=== PATIENT | female | born 1975 | race Caucasian/White ===

== ENCOUNTER 2017-04-05 07:49 | Inpatient (IN) | payer BC ==
[2017-04-05] MEDS ORDERED: SODIUM CHLORIDE 0.9% 1,000 ML IV ONE (08:17)
[2017-04-05] MEDS ORDERED: IPRATROPIUM-ALBUTEROL 3 ML NEB INHALATION STA ×2 (08:23→09:15)
--- NOTE | 2017-04-05 08:23 | ED ---
URI HPI <Bruce Apodaca - Last Filed: 04/05/17 09:54> - General Source: patient, RN notes reviewed Mode of arrival: ambulatory Limitations: no limitations <Misbah Ward - Last Filed: 04/05/17 10:02> - General Chief Complaint: Upper Respiratory Infection Stated Complaint: pneumonia Time Seen by Provider: 04/05/17 08:01 - History of Present Illness Initial Comments: This a 42-year-old female presents emergency Department with chief complaint of cough congestion, shortness of breath fatigue. Patient states symptoms started primarily on progressively getting worse. She states every time she tries to eat or drink she coughs so much that she vomits. Patient states that she has no respiratory issues no traumatic which she states that she takes 2 medications for. Patient has had a prior hysterectomy. Patient states that she is a nonsmoker. adds that the patient house is under current renovation and that they have large amount of raccoons in the attic and there was dust particles flying around. Patient states that her daughter was sick though her daughters improved at this time. Patient denies sore throat, ear pain, nasal congestion. She states that she's had a high fever at home 102.7. Patient states she feels so fatigued and her heart has been racing. Patient states that homeless as she heard some rattling or wheezing. She states she does feel that she has a hard time catching her breath. She has tried multiple [id number] cough and cold medications with no relief. Patient states she has no abdominal pain with nausea vomiting she states is only related to her coughing. (Misbah Ward) - Related Data Home Medications Medication Instructions Recorded Confirmed No Known Home Medications [No 04/05/17 04/05/17 Known Home Medications] Allergies Allergy/AdvReac Type Severity Reaction Status Date / Time No Known Allergies Allergy Verified 04/05/17 08:47 Review of Systems ROS Other: All systems not noted in ROS Statement are negative. <Bruce Apodaca - Last Filed: 04/05/17 09:54> ROS Other: All systems not noted in ROS Statement are negative. <Misbah Ward - Last Filed: 04/05/17 10:02> ROS Statement: Those systems with pertinent positive or pertinent negative responses have been documented in the HPI. Past Medical History Past Medical History: No Reported History History of Any Multi-Drug Resistant Organisms: None Reported Past Surgical History: Hysterectomy Past Psychological History: No Psychological Hx Reported Smoking Status: Never smoker Past Alcohol Use History: Occasional Past Drug Use History: None Reported <Misbah Ward - Last Filed: 04/05/17 10:02> General Exam Limitations: no limitations General appearance: alert, in no apparent distress Head exam: Present: atraumatic, normocephalic, normal inspection Eye exam: Present: normal appearance, PERRL, EOMI. Absent: scleral icterus, conjunctival injection, periorbital swelling ENT exam: Present: normal exam, normal oropharynx, mucous membranes moist, TM's normal bilaterally, normal external ear exam Neck exam: Present: normal inspection, full ROM. Absent: tenderness, meningismus, lymphadenopathy Respiratory exam: Present: wheezes, decreased breath sounds. Absent: normal lung sounds bilaterally, respiratory distress, rales, rhonchi, stridor Cardiovascular Exam: Present: normal rhythm, tachycardia, normal heart sounds. Absent: systolic murmur, diastolic murmur, rubs, gallop, clicks GI/Abdominal exam: Present: soft, normal bowel sounds. Absent: distended, tenderness, guarding, rebound, rigid Neurological exam: Present: alert, oriented X3, CN II-XII intact Skin exam: Present: warm, dry, intact, normal color. Absent: rash <Misbah Ward - Last Filed: 04/05/17 10:02> Course <Bruce Apodaca - Last Filed: 04/05/17 09:54> <Misbah Ward - Last Filed: 04/05/17 10:02> Vital Signs 04/05/17 04/05/17 04/05/17 07:52 08:32 09:13 Temperature 98.8 F 98.6 F Pulse Rate 126 H 100 108 H Respiratory 16 18 Rate Blood Pressure 116/71 119/77 O2 Sat by Pulse 95 95 Oximetry 04/05/17 04/05/17 04/05/17 09:19 09:20 09:32 Temperature Pulse Rate 114 H 114 H 128 H Respiratory Rate Blood Pressure O2 Sat by Pulse Oximetry - Reevaluation(s) Reevaluation #1: 04/05/17 09:54 I did personally do a [id number] evaluation the patient and did discuss the findings with her and her significant other. Patient does demonstrate diminished breath sounds especially in the right lower lobe with wheezing initially. She did get multiple treatments and did feel somewhat better but her saturation still dropped shortly after being taken off oxygen. I did discuss the case with Dr. Kelley the patient will be admitted with consultation by S> Cedrick Donnelly (Bruce Apodaca) Medical Decision Making - Lab Data Result diagrams: 04/05/17 08:15 04/05/17 08:15 <Bruce Apodaca - Last Filed: 04/05/17 09:54> - Lab Data Result diagrams: 04/05/17 08:15 04/05/17 08:15 <Misbah Ward - Last Filed: 04/05/17 10:02> - Lab Data Lab Results 04/05/17 04/05/17 04/05/17 Range/Units 08:15 08:15 08:15 WBC 10.0 (3.8-10.6) k/uL RBC 4.38 (3.80-5.40) m/uL Hgb 13.5 (11.4-16.0) gm/dL Hct 40.0 (34.0-46.0) % MCV 91.2 (80.0-100.0) fL MCH 30.7 (25.0-35.0) pg MCHC 33.7 (31.0-37.0) g/dL RDW 13.3 (11.5-15.5) % Plt Count 278 (150-450) k/uL Neutrophils % 83 % Lymphocytes % 8 % Monocytes % 5 % Eosinophils % 1 % Basophils % 0 % Neutrophils # 8.2 H (1.3-7.7) k/uL Lymphocytes # 0.8 L (1.0-4.8) k/uL Monocytes # 0.5 (0-1.0) k/uL Eosinophils # 0.1 (0-0.7) k/uL Basophils # 0.0 (0-0.2) k/uL PT (9.0-12.0) sec INR (<1.2) APTT (22.0-30.0) sec Sodium 137 (137-145) mmol/L Potassium 3.8 (3.5-5.1) mmol/L Chloride 102 (98-107) mmol/L Carbon Dioxide 24 (22-30) mmol/L Anion Gap 11 mmol/L BUN 7 (7-17) mg/dL Creatinine 0.63 (0.52-1.04) mg/dL Est GFR (MDRD) Af Amer >60 (>60 ml/min/1.73 sqM) Est GFR (MDRD) Non-Af >60 (>60 ml/min/1.73 sqM) Glucose 105 H (74-99) mg/dL Plasma Lactic Acid Will 1.1 (0.7-2.0) mmol/L Calcium 8.3 L (8.4-10.2) mg/dL Total Bilirubin 0.5 (0.2-1.3) mg/dL AST 32 (14-36) U/L ALT 35 (9-52) U/L Alkaline Phosphatase 68 (38-126) U/L Total Protein 6.8 (6.3-8.2) g/dL Albumin 3.7 (3.5-5.0) g/dL Lipase 167 (23-300) U/L Urine Color Urine Appearance (Clear) Urine pH (5.0-8.0) Ur Specific [place] (1.001-1.035) Urine Protein (Negative) Urine Glucose (UA) (Negative) Urine Ketones (Negative) Urine Blood (Negative) Urine Nitrite (Negative) Urine Bilirubin (Negative) Urine Urobilinogen (<2.0) mg/dL Ur Leukocyte Esterase (Negative) Urine RBC (0-5) /hpf Urine WBC (0-5) /hpf Ur Squamous Epith Cells (0-4) /hpf Urine Bacteria (None) /hpf Urine Mucus (None) /hpf 04/05/17 04/05/17 Range/Units 08:15 08:15 WBC (3.8-10.6) k/uL RBC (3.80-5.40) m/uL Hgb (11.4-16.0) gm/dL Hct (34.0-46.0) % MCV (80.0-100.0) fL MCH (25.0-35.0) pg MCHC (31.0-37.0) g/dL RDW (11.5-15.5) % Plt Count (150-450) k/uL Neutrophils % % Lymphocytes % % Monocytes % % Eosinophils % % Basophils % % Neutrophils # (1.3-7.7) k/uL Lymphocytes # (1.0-4.8) k/uL Monocytes # (0-1.0) k/uL Eosinophils # (0-0.7) k/uL Basophils # (0-0.2) k/uL PT 10.3 (9.0-12.0) sec INR 1.0 (<1.2) APTT 25.4 (22.0-30.0) sec Sodium (137-145) mmol/L Potassium (3.5-5.1) mmol/L Chloride (98-107) mmol/L Carbon Dioxide (22-30) mmol/L Anion Gap mmol/L BUN (7-17) mg/dL Creatinine (0.52-1.04) mg/dL Est GFR (MDRD) Af Amer (>60 ml/min/1.73 sqM) Est GFR (MDRD) Non-Af (>60 ml/min/1.73 sqM) Glucose (74-99) mg/dL Plasma Lactic Acid Will (0.7-2.0) mmol/L Calcium (8.4-10.2) mg/dL Total Bilirubin (0.2-1.3) mg/dL AST (14-36) U/L ALT (9-52) U/L Alkaline Phosphatase (38-126) U/L Total Protein (6.3-8.2) g/dL Albumin (3.5-5.0) g/dL Lipase (23-300) U/L Urine Color Yellow Urine Appearance Cloudy H (Clear) Urine pH 6.0 (5.0-8.0) Ur Specific [place] 1.026 (1.001-1.035) Urine Protein 1+ H (Negative) Urine Glucose (UA) Negative (Negative) Urine Ketones 1+ H (Negative) Urine Blood Trace H (Negative) Urine Nitrite Negative (Negative) Urine Bilirubin Negative (Negative) Urine Urobilinogen <2.0 (<2.0) mg/dL Ur Leukocyte Esterase Large H (Negative) Urine RBC 3 (0-5) /hpf Urine WBC >182 H (0-5) /hpf Ur Squamous Epith Cells 11 H (0-4) /hpf Urine Bacteria Rare H (None) /hpf Urine Mucus Rare H (None) /hpf 04/05/17 09:13 EKG performed at 8:44 normal sinus rhythm with a rate of 100 RI interval 172 QRS duration 90 QT/QTC 354/456 (Misbah Ward) Disposition <Bruce Apodaca - Last Filed: 04/05/17 09:54> Time of Disposition: 10:02 <Misbah Ward - Last Filed: 04/05/17 10:02> Clinical Impression: Pneumonia, Hypoxia, UTI (urinary tract infection) Disposition: ADMITTED IP TO THIS HOSP Condition: Fair Referrals: Karlo Mariano MD [Primary Care Provider] - 1-2 days
[2017-04-05 08:52] LABS: Basophils % (A) 0 %; CH 30.3; CHCM 33.4; Eosinophils # (A) 0.1 k/uL (0-0.7); Eosinophils % (A) 1 %; HDW 2.48; HGB 13.5 gm/dL (11.4-16.0); Luc # (Auto) 0.27; Luc % (Auto) 3; Lymphocytes # (A) 0.8 k/uL (1.0-4.8); Lymphocytes % (A) 8 %; MCH 30.7 pg (25.0-35.0); MCHC 33.7 g/dL (31.0-37.0); MCV 91.2 fL (80.0-100.0); Mean Platelet Volume 7.5; Monocytes # (A) 0.5 k/uL (0-1.0); Monocytes % (A) 5 %; Neutrophils # (A) 8.2 k/uL (1.3-7.7); Neutrophils % (A) 83 %; RBC 4.38 m/uL (3.80-5.40); RDW 13.3 % (11.5-15.5); WBC (Perox) 9.27
[2017-04-05 08:55] LABS: Appearance,Urine Cloudy (Clear); Bacteria,Urine Rare /hpf; Bilirubin,Urine Negative (Negative); Glucose,Urine (UA) Negative (Negative); Ketones,Urine 1+ (Negative); Leukocyte Esterase,Urine Large (Negative); Mucus,Urine Rare /hpf; Nitrite,Urine Negative (Negative); Partial Thromboplastin Time 25.4 sec (22.0-30.0); Particle Count 9489; Protein,Urine 1+ (Negative); Prothrombin Time 10.3 sec (9.0-12.0); RBC,Urine 3 /hpf (0-5); Specific Gravity,Urine 1.026 (1.001-1.035); Squamous Epithelial Cell,Urine 11 /hpf (0-4); UA Billing (MACRO vs. MICRO) MICRO; Urobilinogen,Urine <2.0 mg/dL (<2.0); WBC,Urine >182 /hpf (0-5)
[2017-04-05 08:56] LABS: ALT 35 U/L (9-52); AST 32 U/L (14-36); Alkaline Phosphatase 68 U/L (38-126); Anion Gap 11 mmol/L; Blood Urea Nitrogen 7 mg/dL (7-17); Calcium 8.3 mg/dL (8.4-10.2); Carbon Dioxide 24 mmol/L (22-30); Chloride 102 mmol/L (98-107); Glucose 105 mg/dL (74-99); Non-African American GFR(MDRD) >60 (>60 ml/min/1.73 sqM); Potassium 3.8 mmol/L (3.5-5.1); Sodium 137 mmol/L (137-145); Total Bilirubin 0.5 mg/dL (0.2-1.3); Total Protein 6.8 g/dL (6.3-8.2)
--- NOTE | 2017-04-05 09:07 | XR ---
EXAMINATION TYPE: XR chest 2V DATE OF EXAM: 04/05/2017 COMPARISON: NONE HISTORY: cough, congestion, fever. TECHNIQUE: Frontal and lateral views of the chest are obtained. FINDINGS: Mild increased density right lung base may reflect developing infiltrate. Correlate clinically. No evidence for pneumothorax. No pleural effusion. The cardiac silhouette size is within normal limits. The osseous structures are grossly intact. IMPRESSION: 1. Mild increased density right lung base may reflect developing infiltrate. Correlate clinically.
[2017-04-05] MEDS ORDERED: PNEUMONIA PROTOCOL UTILIZED 1 EACH MISC PO PRN (10:02)
[2017-04-05] MEDS ORDERED: methylPREDNISolone SOD SUCCI 125 MG/2 ML VIAL IV STA (10:04)
[2017-04-05] MEDS ORDERED: AZITHROMYCIN 500 MG in SODIUM CHLORIDE 0.9% 250 ML IVPB STA (10:07)
[2017-04-05] MEDS: IPRATROPIUM-ALBUTEROL 3 ML NEB INHALATION PRN ×3 (11:45→20:01)
--- NOTE | 2017-04-05 14:16 | P.HPIM ---
History of Present Illness H&P Date: 04/05/17 Chief Complaint: Shortness of breath and cough This Is a 42-year-old pleasant female patient of Dr. Mariano. She is healthy with no significant medical problems except for shortness 5 please admitted through the emergency room secondary to dyspnea worsening over the past 3 days. Patient has had cough of approximately 5 days duration accompanied by fever, mucus mainly dry tenacious, daughter also has similar symptoms, however they had been renovating their attic for the past 4 years. They live in a mobile home, and was renovating one room at that time, he also mentioned that they have a large amount of raccoons in the attic and dust particles flying around. Patient has temperature of 102.7, has dyspnea and exertion fatigue palpitations , and wheezing and rattling. No medications were prescribed from the clinic, she tried multiple [id number] medications for cough without any relief. Patient denies any hemoptysis no abdominal pain no nausea no vomiting no diarrhea. In the emergency room x-rays revealed mild increased density right lung base may reflect developing infiltrate he had 3 nebulized [id number] treatments of albuterol presenting with hypoxemia and wheezing she is tachycardic, with temperature, double proceed of 10, INR 1.0, no d-dimer obtained Review of Systems Constitutional: Reports as per HPI, Reports chills, Reports fever, Reports lethargy, Denies anorexia, Denies chronic headaches, Denies chronic pain, Denies daytime sleepiness, Denies fatigue, Denies malaise, Denies night sweats, Denies poor appetite, Denies sweats, Denies weakness, Denies weight gain, Denies weight loss Ears, nose, mouth and throat: Reports as per HPI, Denies ant. neck pain, Denies bleeding gums, Denies dental pain, Denies dysphagia, Denies epistaxis, Denies headache, Denies hoarseness, Denies mouth pain, Denies nasal congestion, Denies nasal discharge, Denies neck fullness/pressure, Denies neck lump, Denies nose pain, Denies odynophagia, Denies post-nasal drip, Denies sinus pain, Denies sinus pressure, Denies swelling in mouth, Denies swelling in throat, Denies sore throat, Denies vertigo, Denies voice changes Cardiovascular: Reports as per HPI, Reports decreased exercise tolerance, Reports dyspnea on exertion, Denies chest pain, Denies claudication, Denies edema, Denies high blood pressure, Denies irregular heart beat, Denies leg edema , Denies lightheadedness, Denies orthopnea, Denies palpitations, Denies paroxysmal nocturnal dyspnea, Denies phlebitis, Denies rapid heart beat, Denies shortness of breath, Denies syncope Respiratory: Reports as per HPI, Reports pain on inspiration, Denies congestion , Denies cough, Denies cough with sputum, Denies dyspnea, Denies excessive sputum, Denies hemoptysis, Denies home oxygen, Denies pain, Denies pleurisy, Denies respiratory infections, Denies sleep apnea, Denies snoring, Denies wheezing Gastrointestinal: Reports as per HPI, Denies abdominal pain, Denies belching, Denies bloating, Denies BRBPR, Denies change in bowel habits, Denies coffee ground emesis, Denies constipation, Denies diarrhea, Denies dyspepsia, Denies early satiety, Denies excessive gas, Denies heartburn, Denies hematemesis, Denies hematochezia, Denies indigestion, Denies jaundice, Denies lactose intolerance, Denies loss of appetite, Denies melena, Denies nausea, Denies vomiting Genitourinary: Reports as per HPI, Denies abnormal vaginal bleeding, Denies decreased libido, Denies difficulty conceiving, Denies difficulty voiding, Denies dysmenorrhea, Denies dyspareunia, Denies dysuria, Denies flank pain, Denies genital sores, Denies hematuria, Denies hot flashes, Denies incomplete emptying, Denies kidney stones, Denies menorrhagia, Denies mixed incontinence, Denies nocturia, Denies pelvic pain, Denies post void dribbling, Denies , Denies prolapse symptoms, Denies stress incontinence, Denies urge incontinence , Denies urgency, Denies urinary frequency, Denies vaginal discharge, Denies vaginal dryness, Denies vaginal itching, Denies vaginal odor Musculoskeletal: Reports as per HPI Integumentary: Reports as per HPI, Denies acne, Denies boils, Denies brittle nails, Denies change in hair/nails, Denies color changes, Denies darkening of skin, Denies depigmentation, Denies dryness, Denies foot/leg ulcers, Denies growths, Denies hirsutism, Denies lesions, Denies onychomycosis, Denies pruritus , Denies rash, Denies sores, Denies striae, Denies unusual bruising, Denies wounds Neurological: Reports as per HPI, Denies aphasia, Denies ataxia, Denies balance difficulties, Denies burning pain, Denies change in mentation, Denies change in smell/taste, Denies change in speech, Denies confusion, Denies convulsions, Denies double vision, Denies gait dysfunction, Denies head injury, Denies headaches, Denies hearing difficulties, Denies lack of coordination, Denies loss of vision, Denies memory loss, Denies migraines, Denies motor disturbance, Denies numbness, Denies paralysis, Denies paresthesias, Denies seizures, Denies sensory deficit, Denies spasticity, Denies syncope, Denies tic, Denies tingling , Denies transient paralysis, Denies tremors, Denies vertigo, Denies weakness, Denies visual changes Psychiatric: Reports as per HPI, Reports change in libido, Denies anhedonia, Denies anxiety, Denies anxiety attacks, Denies change in appetite, Denies change in sleep habits, Denies confusion, Denies depression, Denies difficulty concentrating, Denies disorientation, Denies hallucinations, Denies hopelessness , Denies hypersomnia, Denies insomnia, Denies irritability, Denies memory loss, Denies mood swings, Denies paranoia, Denies sadness/tearfulness, Denies sleep disturbances, Denies suicidal ideation Endocrine: Reports as per HPI Hematologic/Lymphatic: Denies as per HPI, Denies easy bleeding, Denies easy bruising, Denies lymphadenopathy, Denies lymphedema, Denies thrombophilia Allergic/Immunologic: Reports as per HPI, Denies allergic rhinitis, Denies anaphylaxis, Denies angioedema, Denies gluten intolerance, Denies persistent infections, Denies seasonal allergies, Denies urticaria, Denies wheezing Past Medical History Past Medical History: No Reported History History of Any Multi-Drug Resistant Organisms: None Reported Past Surgical History: Hysterectomy (Partial) Past Psychological History: No Psychological Hx Reported Smoking Status: Former smoker (Quit April 2016) Past Alcohol Use History: Occasional Past Drug Use History: None Reported (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, mobile home arm was in 1967 and currently being remodeled ) - Past Family History Father Family Medical History: Coronary Artery Disease (CAD) (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, 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 60), Diabetes Mellitus Mother Family Medical History: No Reported History Brother(s) History Unknown: Yes (Bipolar) Sister(s) Family Medical History: No Reported History Daughter(s) Family Medical History: No Reported History Medications and Allergies Home Medications Medication Instructions Recorded Confirmed Type No Known Home Medications [No 04/05/17 04/05/17 History Known Home Medications] Allergies Allergy/AdvReac Type Severity Reaction Status Date / Time No Known Allergies Allergy Verified 04/05/17 08:47 Physical Exam Vitals: Vital Signs Temp Pulse Resp BP Pulse Ox 04/05/17 12:30 99.0 F 118 H 18 116/65 95 04/05/17 11:53 126 H 04/05/17 11:47 112 H 04/05/17 10:32 99.2 F 128 H 18 119/71 94 L 04/05/17 10:02 99 04/05/17 09:32 128 H 04/05/17 09:20 114 H 04/05/17 09:19 114 H 04/05/17 09:13 108 H 04/05/17 08:32 98.6 F 100 18 119/77 95 04/05/17 07:52 98.8 F 126 H 16 116/71 95 Intake and Output 04/04/17 04/05/17 04/05/17 22:59 06:59 14:59 Intake Total 60 Balance 60 Intake: Oral 60 Other: # Voids 2 Weight 90.718 kg Patient Weight 04/06/17 06:59 Weight 90.718 kg - Constitutional General appearance: cooperative, mild distress, no acute distress - EENT Eyes: anicteric sclerae, EOMI, PERRLA, dentition normal, normal appearance ENT: hearing grossly normal, NA/AT, normal oropharynx - Neck Neck: normal ROM - Respiratory Respiratory: bilateral: diminished, rales, wheezing, negative: CTA, dullness, rhonchi - Cardiovascular Rhythm: regular Heart sounds: normal: S1, S2 Abnormal Heart Sounds: no systolic murmur, no diastolic murmur, no rub, no S3 Gallop, no S4 Gallop, no click, no other - Gastrointestinal General gastrointestinal: normal bowel sounds - Integumentary Integumentary: normal, normal turgor - Neurologic Neurologic: CNII-XII intact - Musculoskeletal Musculoskeletal: gait normal, strength equal bilaterally - Psychiatric Psychiatric: A&O x's 3, appropriate affect, intact judgment & insight Results CBC & Chem 7: 04/05/17 08:15 04/05/17 08:15 Labs: Abnormal Lab Results - Last 24 Hours (Table) 04/05/17 04/05/17 04/05/17 Range/Units 08:15 08: 08:15 Neutrophils # 8.2 H (1.3-7.7) k/uL Lymphocytes # 0.8 L (1.0-4.8) k/uL Glucose 105 H (74-99) mg/dL Calcium 8.3 L (8.4-10.2) mg/dL Urine Appearance Cloudy H (Clear) Urine Protein 1+ H (Negative) Urine Ketones 1+ H (Negative) Urine Blood Trace H (Negative) Ur Leukocyte Esterase Large H (Negative) Urine WBC >182 H (0-5) /hpf Ur Squamous Epith Cells 11 H (0-4) /hpf Urine Bacteria Rare H (None) /hpf Urine Mucus Rare H (None) /hpf Laboratory Results WBC 10.0 k/uL (3.8-10.6) 04/05/17 08:15 RBC 4.38 m/uL (3.80-5.40) 04/05/17 08:15 Hgb 13.5 gm/dL (11.4-16.0) 04/05/17 08:15 Hct 40.0 % (34.0-46.0) 04/05/17 08:15 MCV 91.2 fL (80.0-100.0) 04/05/17 08:15 MCH 30.7 pg (25.0-35.0) 04/05/17 08:15 MCHC 33.7 g/dL (31.0-37.0) 04/05/17 08:15 RDW 13.3 % (11.5-15.5) 04/05/17 08:15 Plt Count 278 k/uL (150-450) 04/05/17 08:15 Neutrophils % 83 % 04/05/17 08:15 Lymphocytes % 8 % 04/05/17 08:15 Monocytes % 5 % 04/05/17 08:15 Eosinophils % 1 % 04/05/17 08:15 Basophils % 0 % 04/05/17 08:15 Neutrophils # 8.2 k/uL (1.3-7.7) H 04/05/17 08:15 Lymphocytes # 0.8 k/uL (1.0-4.8) L 04/05/17 08:15 Monocytes # 0.5 k/uL (0-1.0) 04/05/17 08:15 Eosinophils # 0.1 k/uL (0-0.7) 04/05/17 08:15 Basophils # 0.0 k/uL (0-0.2) 04/05/17 08:15 PT 10.3 sec (9.0-12.0) 04/05/17 08:15 INR 1.0 (<1.2) 04/05/17 08:15 APTT 25.4 sec (22.0-30.0) 04/05/17 08:15 Sodium 137 mmol/L (137-145) 04/05/17 08:15 Potassium 3.8 mmol/L (3.5-5.1) 04/05/17 08:15 Chloride 102 mmol/L (98-107) 04/05/17 08:15 Carbon Dioxide 24 mmol/L (22-30) 04/05/17 08:15 Anion Gap 11 mmol/L 04/05/17 08:15 BUN 7 mg/dL (7-17) 04/05/17 08:15 Creatinine 0.63 mg/dL (0.52-1.04) 04/05/17 08:15 Est GFR (MDRD) Af Amer >60 (>60 ml/min/1.73 sqM) 04/05/17 08:15 Est GFR (MDRD) Non-Af >60 (>60 ml/min/1.73 sqM) 04/05/17 08:15 Glucose 105 mg/dL (74-99) H 04/05/17 08:15 Plasma Lactic Acid Will 1.1 mmol/L (0.7-2.0) 04/05/17 08:15 Calcium 8.3 mg/dL (8.4-10.2) L 04/05/17 08:15 Total Bilirubin 0.5 mg/dL (0.2-1.3) 04/05/17 08:15 AST 32 U/L (14-36) 04/05/17 08:15 ALT 35 U/L (9-52) 04/05/17 08:15 Alkaline Phosphatase 68 U/L (38-126) 04/05/17 08:15 Total Protein 6.8 g/dL (6.3-8.2) 04/05/17 08:15 Albumin 3.7 g/dL (3.5-5.0) 04/05/17 08:15 Lipase 167 U/L (23-300) 04/05/17 08:15 Urine Color Yellow 04/05/17 08:15 Urine Appearance Cloudy (Clear) H 04/05/17 08:15 Urine pH 6.0 (5.0-8.0) 04/05/17 08:15 Ur Specific [place] 1.026 (1.001-1.035) 04/05/17 08:15 Urine Protein 1+ (Negative) H 04/05/17 08:15 Urine Glucose (UA) Negative (Negative) 04/05/17 08:15 Urine Ketones 1+ (Negative) H 04/05/17 08:15 Urine Blood Trace (Negative) H 04/05/17 08:15 Urine Nitrite Negative (Negative) 04/05/17 08:15 Urine Bilirubin Negative (Negative) 04/05/17 08:15 Urine Urobilinogen <2.0 mg/dL (<2.0) 04/05/17 08:15 Ur Leukocyte Esterase Large (Negative) H 04/05/17 08:15 Urine RBC 3 /hpf (0-5) 04/05/17 08:15 Urine WBC >182 /hpf (0-5) H 04/05/17 08:15 Ur Squamous Epith Cells 11 /hpf (0-4) H 04/05/17 08:15 Urine Bacteria Rare /hpf (None) H 04/05/17 08:15 Urine Mucus Rare /hpf (None) H 04/05/17 08:15 Thrombosis Risk Factor Assmnt - DVT/VTE Prophylaxis DVT/VTE Prophylaxis: Mechanical Prophylaxis ordered, Low risk, early ambulation encouraged - Choose All That Apply Each Factor Represents 1 point: Age 41-60 years Other Risk Factors: No Thrombosis Risk Factor Assessment Total Risk Factor Score: 1 Thrombosis Risk Factor Assessment Level: Low Risk Assessment and Plan Plan: 1. Acute respiratory distress related to right-sided pneumonia, with exposure to environmental aeroallergens, bronchospasm on presentation suspicious of reactive airway disease. Patient would be treated with IV steroids, IV Rocephin and Zithromax, sputum cultures as well as mycoplasma titer will be obtained and Legionella titers, patient would also have hypersensitivity pneumonitis panel to be obtained IgE levels to be obtained an alpha-1 antitrypsin to be obtained Dr. Donnelly on consult pulmonary 2. Pyuria noted on routine urinalysis, urine cultures would be also be done to evaluate pyuria 3. Arthritis without any auto immune pathology. Patient might need to be investigated further with an Vanna 4. Previous tobacco exposure quit in April 2016 5. Aeroallergen exposure constantly with the current home being renovated for the past 4 years, hypersensitivity pneumonitis and she can ALLERGY panel is requested
[2017-04-05 15:25] LABS: Hemoglobin A1C 5.5 % (4.2-6.1)
[2017-04-05] MEDS: methylPREDNISolone SOD SUCCI 125 MG/2 ML VIAL IV SCH ×2 (15:47→23:49)
[2017-04-05] MEDS: INSULIN LISPRO (humaLOG) 300 UNIT/3 ML VIAL SQ SCH ×2 (17:37→22:28)
[2017-04-05 17:43] LABS: Glucose,Whole Blood 205 mg/dL (75-99)
[2017-04-05] MEDS: BUDESONIDE 0.5 MG/2 ML NEBU INHALATION SCH (20:01)
[2017-04-05 20:55] LABS: Glucose,Whole Blood 263 mg/dL (75-99)
[2017-04-05] MEDS: HEPARIN SODIUM,PORCINE 5,000 UNIT/ML 1 ML VIAL SQ SCH (22:28)
[2017-04-05] MEDS: FAMOTIDINE 20 MG TAB PO SCH (22:28)
--- NOTE | 2017-04-05 22:30 | CT ---
EXAMINATION TYPE: CT chest wo con DATE OF EXAM: 04/05/2017 COMPARISON: NONE HISTORY: Cough and congestion CT DLP: 756 mGycm. Automated Exposure Control for Dose Reduction was Utilized. TECHNIQUE: CT scan of the thorax is performed without IV contrast. FINDINGS: LUNGS: In the right lung base there is developing consolidative opacity laterally and posteriorly, co nsistent with developing bronchopneumonia. To a lesser extent similar changes can be seen in the ling constanza and the left lower lobe. The lungs are otherwise grossly clear; there is no concerning parenchyma l mass or nodule identified. There is no pleural effusion or pneumothorax seen. The tracheobronchial tree is patent. MEDIASTINUM: Lack of IV contrast is noted to limit evaluation for mediastinal and especially hilar ad enopathy. There are no definitive greater than 1 cm hilar or mediastinal lymph nodes. No cardiomega ly or pericardial effusion is seen. OTHER: Cholelithiasis is incidentally noted. IMPRESSION: MULTIFOCAL BRONCHOPNEUMONIA PATTERN.
[2017-04-06 07:42] LABS: Glucose,Whole Blood 140 mg/dL (75-99)
--- NOTE | 2017-04-06 07:49 | XR ---
EXAMINATION TYPE: XR chest 2V DATE OF EXAM: 04/06/2017 CLINICAL HISTORY: Pneumonia follow-up TECHNIQUE: Frontal and lateral views of the chest are obtained. COMPARISON: 04/05/2017 FINDINGS: Density right lower lobe may reflect pneumonia. No significant interval change. The cardiac silhouette size is within normal limits. The osseous structures are intact. IMPRESSION: Density right lower lobe may reflect pneumonia. No significant interval change.
[2017-04-06] MEDS: methylPREDNISolone SOD SUCCI 125 MG/2 ML VIAL IV SCH (08:21)
[2017-04-06] MEDS: FAMOTIDINE 20 MG TAB PO SCH ×2 (08:21→21:23)
[2017-04-06] MEDS: AZITHROMYCIN 500 MG TAB PO SCH (08:21)
[2017-04-06] MEDS: INSULIN LISPRO (humaLOG) 300 UNIT/3 ML VIAL SQ SCH ×4 (08:30→21:24)
[2017-04-06] MEDS: HEPARIN SODIUM,PORCINE 5,000 UNIT/ML 1 ML VIAL SQ SCH ×2 (08:34→21:23)
[2017-04-06] MEDS: IPRATROPIUM-ALBUTEROL 3 ML NEB INHALATION PRN (09:05)
[2017-04-06] MEDS: BUDESONIDE 0.5 MG/2 ML NEBU INHALATION SCH ×2 (09:05→20:43)
--- NOTE | 2017-04-06 09:36 | CONS ---
Jo Ann Louie is a 42-year-old female who presented to the ED at [facility] with cough, chills, fever, shortness of breath, scant sputum production. She subsequently was seen in the ED and was thought to have had infiltrate on the right lower zone on the x-ray and subsequently is admitted for further evaluation. She was started on antibiotics for pneumonia. She does have some difficulty taking a deep breath. She has noticed wheezing and had been doing well up until five days ago. She had a fever up to 102 with chills and rigors at the time. Her past medical history is negative for discrete diagnosis of asthma, however, she suspects she has asthma. She is exposed to mold as well. Patient has no previous surgeries. 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 She does not drink alcohol excessively. She is a former smoker. She quit in April of 2016. Family history is positive for coronary artery disease in her father, diabetes mellitus in her father, bipolar disorder in her brother. She has no previous home medications. Review of systems are noncontributory. On physical examination blood pressure is 116/65, respiratory rate of 18, pulse rate of 118, temperature 99 degrees Fahrenheit. HEENT reveals pupils that are equal. No jugular venous distention. Chest reveals decreased breath sounds in the bases with scattered crackles. Patient has wheeze on forced expiration. Cardiovascular reveals an S1, S2. No S3, no S4. Abdomen is soft. There is no pedal edema. White count is 10. Hemoglobin of 13.5, 0.1000 eosinophils, 8.2000 neutrophils. UA shows 1+ protein, trace blood, large leukocyte esterase, wbc's are greater than 182. IMPRESSION: 1. Pneumonia. 2. Asthma with exacerbation is likely. 3. Urinary trace infection. At this point in time would keep her on azithromycin and Rocephin. Continue on bronchodilators and aerosolized steroids. Check peak flows on her. Keep her on GI and DVT prophylaxis. Depending on how she does we shall make further changes to her care. she was counseled regarding her condition and this approach. We will also check a CT scan of the chest to further anatomically delineate her pneumonia and to make sure there are no significant interstitial changes. GLADIS
[2017-04-06 11:34] LABS: Glucose,Whole Blood 197 mg/dL (75-99)
--- NOTE | 2017-04-06 14:32 | P.PN ---
Abhijit Is a 42-year-old pleasant female patient of Dr. Mariano. She is healthy with no significant medical problems except for shortness of breath admitted through the emergency room secondary to dyspnea worsening over the past 3 days. Patient has had cough of approximately 5 days duration accompanied by fever, mucus mainly dry tenacious, daughter also has similar symptoms, however they had been renovating their attic for the past 4 years. They live in a mobile home, and was renovating one room at that time, he also mentioned that they have a large amount of raccoons in the attic in the wood dust particles flying around. Patient has temperature of 102.7, has dyspnea and exertion fatigue palpitations, and wheezing and rattling. No medications were prescribed from the clinic, she tried multiple [id number]-[id number] medications for cough without any relief. Patient denies any hemoptysis no abdominal pain no nausea no vomiting no diarrhea. In the emergency room x-rays revealed mild increased density right lung base may reflect developing infiltrate he had 3 nebulized [id number] treatments of albuterol presenting with hypoxemia and wheezing she is tachycardic, with temperature, WBC of 10, INR 1.0, no d-dimer obtained 04/06: Urine and sputum culture remain in progress. D-dimer was 0.5 for an VANNA screen negative. Hemoglobin A1c 5.5. IgE was normal. Patient has been afebrile. Breathing status is somewhat improved from yesterday. Solu-Medrol is currently at 60 mg IV every 8 hours and will eat decreased to 40 mg every 8 hours. Mucinex added and she is continued on antibiotics of azithromycin and ceftriaxone. Objective - Vital Signs Vital signs: Vital Signs Temp 94.7 F L 04/05/17 23:00 Pulse 113 H 04/06/17 00:00 Resp 16 04/06/17 00:00 BP 141/77 04/05/17 23:00 Pulse Ox 98 04/05/17 23:00 Intake & Output 04/05/17 04/06/17 04/06/17 18:59 06:59 18:59 Intake Total 60 1180 Balance 60 1180 Weight 90.718 kg Intake: Oral 60 1180 Other: Voiding Method Toilet # Voids 2 2 - Exam General appearance: cooperative, mild distress, no acute distress - EENT Eyes: anicteric sclerae, EOMI, PERRLA, dentition normal, normal appearance ENT: hearing grossly normal, NA/AT, normal oropharynx - Neck Neck: normal ROM - Respiratory Respiratory: bilateral: diminished, rales, wheezing, negative: CTA, dullness, rhonchi - Cardiovascular Rhythm: regular Heart sounds: normal: S1, S2 Abnormal Heart Sounds: no systolic murmur, no diastolic murmur, no rub, no S3 Gallop, no S4 Gallop, no click, no other - Gastrointestinal General gastrointestinal: normal bowel sounds - Integumentary Integumentary: normal, normal turgor - Neurologic Neurologic: CNII-XII intact - Musculoskeletal Musculoskeletal: gait normal, strength equal bilaterally - Psychiatric Psychiatric: A&O x's 3, appropriate affect, intact judgment & insight - Labs CBC & Chem 7: 04/05/17 08:15 04/05/17 08:15 Labs: Abnormal Lab Results - Last 24 Hours (Table) 04/05/17 04/05/17 04/05/17 Range/Units 08:15 08:15 08:15 Neutrophils # 8.2 H (1.3-7.7) k/uL Lymphocytes # 0.8 L (1.0-4.8) k/uL Glucose 105 H (74-99) mg/dL POC Glucose (mg/dL) (75-99) mg/dL Calcium 8.3 L (8.4-10.2) mg/dL Urine Appearance Cloudy H (Clear) Urine Protein 1+ H (Negative) Urine Ketones 1+ H (Negative) Urine Blood Trace H (Negative) Ur Leukocyte Esterase Large H (Negative) Urine WBC >182 H (0-5) /hpf Ur Squamous Epith Cells 11 H (0-4) /hpf Urine Bacteria Rare H (None) /hpf Urine Mucus Rare H (None) /hpf 04/05/17 04/05/17 04/06/17 Range/Units 17:33 20:53 07:27 Neutrophils # (1.3-7.7) k/uL Lymphocytes # (1.0-4.8) k/uL Glucose (74-99) mg/dL POC Glucose (mg/dL) 205 H 263 H 140 H (75-99) mg/dL Calcium (8.4-10.2) mg/dL Urine Appearance (Clear) Urine Protein (Negative) Urine Ketones (Negative) Urine Blood (Negative) Ur Leukocyte Esterase (Negative) Urine WBC (0-5) /hpf Ur Squamous Epith Cells (0-4) /hpf Urine Bacteria (None) /hpf Urine Mucus (None) /hpf Microbiology - Last 24 Hours (Table) 04/05/17 00:04 Sputum Culture - Preliminary Sputum 04/05/17 08:15 Urine Culture - Preliminary Urine,Voided Assessment and Plan Plan: 1. Acute respiratory distress related to right-sided pneumonia, with exposure to environmental aeroallergens, bronchospasm on presentation suspicious of reactive airway disease. Patient would be treated with IV steroids, IV Rocephin and Zithromax, sputum cultures as well as mycoplasma titer will be obtained and Legionella titers, patient would also have hypersensitivity pneumonitis panel to be obtained IgE levels to be obtained an alpha-1 antitrypsin to be obtained Dr. Donnelly on consult pulmonary 2. Pyuria noted on routine urinalysis, urine cultures would be also be done to evaluate pyuria 3. Arthritis without any auto immune pathology. Patient might need to be investigated further with an Vanna 4. Previous tobacco exposure quit in April 2016 5. Aeroallergen exposure constantly with the current home being renovated for the past 4 years, hypersensitivity pneumonitis and she can ALLERGY panel is requested Discharge plan: Return home Impression and plan of care have been directed as dictated by the signing physician. Deborah Mckeon nurse practitioner acting as scribe for signing physician.
[2017-04-06] MEDS ORDERED: ACETAMINOPHEN TAB 500 MG TAB PO PRN (16:13)
[2017-04-06] MEDS: methylPREDNISolone SOD SUCCI 40 MG/ML 1 ML VIAL IV SCH ×2 (17:16→23:26)
[2017-04-06 18:02] LABS: Glucose,Whole Blood 150 mg/dL (75-99)
[2017-04-06 20:29] LABS: Glucose,Whole Blood 139 mg/dL (75-99)
[2017-04-06 21:08] VITALS: TEMP 97.7
[2017-04-06] MEDS: guaiFENesin 600 MG TABLET.ER PO SCH (21:23)
[2017-04-07] MEDS: IPRATROPIUM-ALBUTEROL 3 ML NEB INHALATION PRN ×2 (07:18→11:23)
[2017-04-07] MEDS: BUDESONIDE 0.5 MG/2 ML NEBU INHALATION SCH (07:18)
[2017-04-07 07:39] LABS: Glucose,Whole Blood 135 mg/dL (75-99)
[2017-04-07] MEDS: INSULIN LISPRO (humaLOG) 300 UNIT/3 ML VIAL SQ SCH ×2 (08:34→12:24)
[2017-04-07] MEDS: FAMOTIDINE 20 MG TAB PO SCH (08:35)
[2017-04-07] MEDS: guaiFENesin 600 MG TABLET.ER PO SCH (08:35)
[2017-04-07] MEDS: AZITHROMYCIN 500 MG TAB PO SCH (08:35)
[2017-04-07] MEDS: methylPREDNISolone SOD SUCCI 40 MG/ML 1 ML VIAL IV SCH (08:36)
[2017-04-07] MEDS: HEPARIN SODIUM,PORCINE 5,000 UNIT/ML 1 ML VIAL SQ SCH (08:36)
[2017-04-07 08:38] VITALS: RESP 18
--- NOTE | 2017-04-07 09:00 | PN ---
DATE OF SERVICE: 04/06/2017 She has been hemodynamically stable. She feels slightly better overall. On physical examination blood pressure is 109/67, respiratory rate 18, pulse rate of 106, temperature 98.3. HEENT is unremarkable. Chest reveals occasional wheeze. Cardiovascular system reveals an S1, S2. Abdomen is soft. There is no pedal edema. Labs reveal an BERNARDA screen that is negative. Microbiological cultures are showing gram- negative bacilli in the urine. Blood cultures and sputum are negative so far. CT scan of the chest shows evidence of multifocal areas of pneumonia. IMPRESSION: 1. Pneumonia. 2. Urinary tract infection. 3. Check an echo to make sure we are not dealing with an infected valve that may have been showering septic emboli as she seem to have at least multifocal areas of pneumonia but also urinary tract infection. At this point in time from pulmonary standpoint, would continue antibiotics, steroids, agree with tapering them. Continue bronchodilators. GI and DVT prophylaxis. Her prognosis at this time is fair. Await final urine culture and sputum cultures. GLADIS
[2017-04-07 11:24] LABS: Glucose,Whole Blood 242 mg/dL (75-99)
--- NOTE | 2017-04-07 11:40 | ECHOF ---
Referral Reason:possible endocarditis MEASUREMENTS -------- HEIGHT: 172.7 cm WEIGHT: 90.7 kg BP: 118/71 RVIDd: 3.1 cm (< 3.3) IVSd: 1.0 cm (0.6 - 1.1) LVIDd: 4.5 cm (3.9 - 5.3) LVPWd: 1.3 cm (0.6 - 1.1) IVSs: 1.3 cm LVIDs: 3.8 cm LVPWs: 1.3 cm LA Diam: 3.2 cm (2.7 - 3.8) LAESV Index (A-L): 45.05 ml/m Ao Diam: 3.4 cm (2.0 - 3.7) AV Cusp: 2.6 cm (1.5 - 2.6) LA Diam: 4.4 cm (2.7 - 3.8) MV EXCURSION: 17.918 mm (> 18.000) MV EF SLOPE: 101 mm/s (70 - 150) EPSS: 0.3 cm MV E Rome: 0.88 m/s MV DecT: 120 ms MV A Rome: 0.62 m/s MV E/A Ratio: 1.44 RAP: 5.00 mmHg RVSP: 31.81 mmHg FINDINGS -------- Sinus rhythm. This was a technically good study. LV size, wall thickness and systolic function are normal, with an EF greater than 55%. The right ventricle is normal in size. LA is severely dilated >40 ml/m2 The right atrial size is normal. The aortic valve is trileaflet, and appears structurally normal. No aortic stenosis or regurgitation. Mild mitral regurgitation is present. Mild tricuspid regurgitation present. There is no evidence of pulmonary hypertension. The right ventricular systolic pressure, as measured by Doppler, is 31.81mmHg. There is no pulmonic regurgitation present. The aortic root size is normal. There is no pericardial effusion. CONCLUSIONS -------- 1. LV size, wall thickness and systolic function are normal, with an EF greater than 55%. 2. LA is severely dilated >40 ml/m2 3. Mild mitral regurgitation is present. 4. Mild tricuspid regurgitation present. 5. There is no evidence of pulmonary hypertension. 6. The right ventricular systolic pressure, as measured by Doppler, is 31.81mmHg. 7. There is no pulmonic regurgitation present. 8. The aortic root size is normal. 9. There is no pericardial effusion. [employer]: Lynsey Lovelace RDCS
[2017-04-07 11:42] LABS: Alternaria alternata IgE <0.35 kU/L (<0.35); Asperg. fumagatus IgE <0.35 kU/L (<0.35); Asperg. fumagatus IgE Class CLASS 0; Birch(Com.Silvr) IgE Class CLASS 0; Cat Epith & Dander IgE <0.35 kU/L (<0.35); Cat Epith & Dander IgE Class CLASS 0; Clad herbarum IgE <0.35 kU/L (<0.35); Clad herbarum IgE Class CLASS 0; Common Ragweed IgE Class CLASS 0; Dermato. Pteronyssinus Class CLASS 0; Dermato. Pteronyssinus IgE <0.35 kU/L (<0.35); Dermato. farinae IgE <0.35 kU/L (<0.35); Dermato. farinae IgE Class CLASS 0; IgE (Allergen) 28.2 IU/mL (<114.0); Maple (Box Elder) IgE <0.35 kU/L (<0.35); Maple (Box Elder) IgE Class CLASS 0; Mountain Cedar IgE <0.35 kU/L (<0.35); Mountain Cedar IgE Class CLASS 0; Mouse Urine IgE Class CLASS 0; Mouse Urine Proteins,IgE <0.35 kU/L (<0.35); Mulberry IgE Class CLASS 0; Nettle IgE <0.35 kU/L (<0.35); Nettle IgE Class CLASS 0; Oak IgE <0.35 kU/L (<0.35); Penicillium notatum IgE Class CLASS 0; Rough Marshelder IgE <0.35 kU/L (<0.35); Rough Marshelder IgE Class CLASS 0; Timothy Grass IgE <0.35 kU/L (<0.35); Timothy Grass IgE Class CLASS 0; White Ash IgE Class CLASS 0
[2017-04-07 11:54] VITALS: BP 121/61
--- NOTE | 2017-04-07 12:20 | P.DS ---
Providers Date of admission: 04/05/17 09:52 Expected date of discharge: 04/07/17 Attending physician: Sheyla Kelley Consults: 04/05/17 10:02 Consult Physician Stat Consulting Provider: Ramiro Donnelly Consult Reason/Comments: Pneumonia Do you want consulting provider notified?: Yes Primary care physician: [facility] Course: Is a 42-year-old pleasant female patient of Dr. Mariano. She is healthy with no significant medical problems except for shortness of breath admitted through the emergency room secondary to dyspnea worsening over the past 3 days. Patient has had cough of approximately 5 days duration accompanied by fever, mucus mainly dry tenacious, daughter also has similar symptoms, however they had been renovating their attic for the past 4 years. They live in a mobile home, and was renovating one room at that time, he also mentioned that they have a large amount of raccoons in the attic in the wood dust particles flying around. Patient has temperature of 102.7, has dyspnea and exertion fatigue palpitations, and wheezing and rattling. No medications were prescribed from the clinic, she tried multiple [id number]-jiw-oluvqzi medications for cough without any relief. Patient denies any hemoptysis no abdominal pain no nausea no vomiting no diarrhea. In the emergency room x-rays revealed mild increased density right lung base may reflect developing infiltrate he had 3 nebulized [id number] treatments of albuterol presenting with hypoxemia and wheezing she is tachycardic, with temperature, WBC of 10, INR 1.0, no d-dimer obtained 04/06: Urine and sputum culture remain in progress. D-dimer was 0.5 for an BERNARDA screen negative. Hemoglobin A1c 5.5. IgE was normal. Patient has been afebrile. Breathing status is somewhat improved from yesterday. Solu-Medrol is currently at 60 mg IV every 8 hours and will eat decreased to 40 mg every 8 hours. Mucinex added and she is continued on antibiotics of azithromycin and ceftriaxone. 04/07: Repeat chest x-ray shows density in the right lower lobe may reflect pneumonia. No significant interval change. Breathing status is improving. Patient will be discharged home today in stable condition. Patient will followed up with Dr. SOLANGE Donnelly in the office. Discharge diagnoses: 1. Acute respiratory distress related to right-sided pneumonia, with exposure to environmental aeroallergens, bronchospasm on presentation suspicious of reactive airway disease. 2. Pyuria 3. Arthritis without any auto immune pathology. 4. Previous tobacco exposure quit in April 2016 5. Aeroallergen exposure Discharge plan: Return home Impression and plan of care have been directed as dictated by the signing physician. Deborah Mckeon nurse practitioner acting as scribe for signing physician. Patient Condition at Discharge: Good Plan - Discharge Summary New Discharge Prescriptions: New Albuterol Inhaler [Ventolin Hfa Inhaler] 2 puff INHALATION Q4H PRN #1 inhaler PRN Reason: Wheezing Levofloxacin [Levaquin] 750 mg PO DAILY #7 tab predniSONE 0 mg PO DIRECTED #45 tab Fluticasone Propionate [Flovent Hfa 110mcg] 2 puff INHALATION BID #1 inhaler Discharge Medication List Albuterol Inhaler [Ventolin Hfa Inhaler] 2 puff INHALATION Q4H PRN #1 inhaler [Rx] Fluticasone Propionate [Flovent Hfa 110mcg] 2 puff INHALATION BID #1 inhaler [Rx] Levofloxacin [Levaquin] 750 mg PO DAILY #7 tab 04/07/17 [Rx] predniSONE 0 mg PO DIRECTED #45 tab 04/07/17 [Rx] Follow up Appointment(s)/Referral(s): Karlo Mariano MD [Primary Care Provider] - 1 Week Ramiro Donnelly MD [STAFF PHYSICIAN] - 1 Week Discharge Disposition: HOME SELF-CARE
[2017-04-07 15:45] VITALS: PULSE 87
[2017-04-08 05:56] LABS: Mycoplasma IgG Antibody (EIA) 0.98 INDEX (<=0.90); Mycoplasma IgM Antibody 0.43 INDEX (<=0.90)
--- NOTE | 2017-04-08 07:51 | PN ---
DATE OF SERVICE: 04/07/2017 The patient is a 42-year-old female who is seen sitting up in bed eating lunch, feeling much better than she did when she came in. Continues to have a cough with deep inspiration. The patient is afebrile. Hemodynamically stable and in no acute distress. ON PHYSICAL EXAM: VITAL SIGNS: Temp is 97.7, heart rate is 80, respiratory rate 18, blood pressure is 121/61. O2 sat is 99% on room air. HEENT: Head is normocephalic, atraumatic. NECK: Supple. Trachea is midline. LUNGS: Cough on deep inspiration, diminished to the bilateral bases with a few scattered rales. HEART: S1 and S2 are heard, not tachycardiac. Abdomen is soft. Bowel sounds are heard. NEUROLOGIC: Patient is awake, alert, oriented. LABS: No new labs to review, however, culture on urine does show greater than or equal to 100,000 E. Coli. IMAGING: No new imaging to review. There is an echocardiogram and echocardiogram shows left ventricular size, wall thickness and systolic function are normal with an EF greater than 55%. Left atrium is severely dilated , greater than 40 mL/( ). Mild mitral regurgitation is present. Mild tricuspid regurgitation is present. There is no evidence of pulmonary hypertension. The right ventricular systolic pressure by Doppler is 31.8. There is no pulmonic regurgitation present. The aortic root size is normal. There is no pericardial effusion. IMPRESSION: 1. Pneumonia. 2. Urinary tract infection. PLAN: Continue current medications, which have been reviewed with bronchodilators, aerosol steroids and IV Solu-Medrol. Continue antibiotics. Continue GI and DVT prophylaxis. We will continue to follow patient closely with you making further changes as necessary. GLADIS
[2017-04-11 23:46] LABS: Alternaria Alternata IgG < 2.0 mcg/mL (< 13.6); Cladosporium herbarium IgG 2.5 mcg/mL (< 14.7); Phoma ssp. IgG 2.4 mcg/mL (< 6.6); Saccaharomospora viridis Not detected (Not detected); Saccaharopoly. rectivirgula Not detected (Not detected)
== END 2017-04-07 16:15 | disposition home or self-care (01) | DRG 194 ==
LOC: EC 07:49 → 5MS5E 09:52
PROVIDERS: ADMIT Family Medicine; ATTEND Family Medicine
DX: J18.9 Pneumonia, unspecified organism (principal); J45.901 Unspecified asthma with (acute) exacerbation; N39.0 Urinary tract infection, site not specified; M19.90 Unspecified osteoarthritis, unspecified site; R09.02 Hypoxemia; Z87.891 Personal history of nicotine dependence; Z82.49 Family history of ischemic heart disease and other diseases of the circulatory system
CPT/HCPCS: 36415; 71020; 71250; 80053; 81001; 82103; 82104; 82785; 83036; 83605; 83690; 85025; 85379; 85610; 85730; 86001; 86003; 86038; 86606; 86609; 86738; 87040; 87070; 87077; 87086; 87186; 87205; 87449; 93005; 93306; 94640; 94760; 96361; 96365; 96375; 99285

== ENCOUNTER → 2017-05-05 | Outpatient (CLI) | payer BC ==
--- NOTE | 2017-05-05 08:34 | CT ---
EXAMINATION TYPE: CT chest wo con DATE OF EXAM: 05/05/2017 COMPARISON: 04/05/2017 HISTORY: SOB and COUGH CT DLP: 329.30 mGycm. Automated Exposure Control for Dose Reduction was Utilized. TECHNIQUE: CT scan of the thorax is performed without IV contrast. FINDINGS: LUNGS: The previously seen patchy right lower lobe opacity has completely resolved in the interim wit h no evidence of focal consolidation, airspace disease, or peribronchial thickening. Calcified granul omas are noted within the right middle lobe and right upper lobe. Lingular atelectasis and/or airspac e disease has resolved in the interim entirely. Tracheobronchial tree is patent. MEDIASTINUM: Lack of IV contrast is noted to limit evaluation for mediastinal and especially hilar ad enopathy. There are no definitive greater than 1 cm hilar or mediastinal lymph nodes. No cardiomega ly or pericardial effusion is seen. OTHER: Cholelithiasis is again incidentally noted. Gallbladder is incompletely visualized. IMPRESSION: 1. Complete resolution of the previously seen lingular and right lower lobe airspace disease. No foca l consolidation or residual atelectasis. 2. Few benign pulmonary parenchymal granulomas. 3. Incidental note of cholelithiasis in an incompletely visualized gallbladder.
== END | disposition home or self-care (01) ==
LOC: RADCTMAIN 06:57
PROVIDERS: ATTEND Internal Medicine Pulmonary Disease
DX: J84.10 Pulmonary fibrosis, unspecified (principal)
CPT/HCPCS: 71250

== ENCOUNTER → 2023-01-13 | Outpatient (CLI) | payer OTHER ==
[2023-01-13 15:23] LABS: Basophils # (A) 0.05 X 10*3/uL (0.00-0.10); Eosinophils # (A) 0.34 X 10*3/uL (0.04-0.35); Eosinophils % (A) 6.7 %; HCT 40.7 % (37.2-46.3); HGB 12.4 g/dL (12.0-15.0); Immature Grans, Automated 0.2 %; Lymphocytes # (A) 1.16 X 10*3/uL (0.90-5.00); Lymphocytes % (A) 22.7 %; MCH 28.1 pg (27.0-32.0); MCHC 30.5 g/dL (32.0-37.0); MCV 92.3 fL (80.0-97.0); Mean Platelet Volume 10.3 fL (9.5-12.2); Monocytes # (A) 0.46 X 10*3/uL (0.20-1.00); NRBC Per 100 WBC 0 /100 WBCS (0.0-0.0); Neutrophils # (A) 3.09 X 10*3/uL (1.80-7.70); Neutrophils % (A) 60.4 %; Platelet Count 232 X 10*3/uL (140-440); RBC 4.41 X 10*6/uL (4.10-5.20); RDW 12.7 % (11.5-14.5); WBC 5.11 X 10*3/uL (4.50-10.00)
[2023-01-13 15:53] LABS: C Reactive Protein 0.4 mg/dL (0.00-0.80); Uric Acid 4.4 mg/dL (2.9-7.7)
[2023-01-13 16:03] LABS: Erythrocyte Sedimentation Rate 31 mm/Hr (0-20)
[2023-01-13 20:49] LABS: Cyclic Citrull Pep IgG Unit <1.5 U/mL; Cyclic Citrullinated Pep IgG NEGATIVE (NEGATIVE)
== END | disposition home or self-care (01) ==
LOC: LABWHC1 07:59
PROVIDERS: ATTEND Orthopaedic Surgery Foot and Ankle Surgery
DX: M77.41 Metatarsalgia, right foot (principal); M77.42 Metatarsalgia, left foot
CPT/HCPCS: 36415; 84550; 85025; 85652; 86038; 86140; 86200; 86431

== ENCOUNTER → 2023-08-19 | Outpatient (CLI) | payer OTHER ==
--- NOTE | 2023-08-23 15:30 | MM ---
Reason for Exam: Screening (asymptomatic). Last mammogram was performed 5 year(s) and 0 month(s) ago. Patient History: Menarche at age 14. First Full-Term at age 23. Hysterectomy at age 37. Postmenopausal. Patient has history of breast feeding. Risk Values: Nasreen 5 year model risk: 0.8%. NCI Lifetime model risk: 7.5%. Prior Study Comparison: 12/10/2009 Bilateral Screening Mammogram, [facility]. 05/12/2012 Bilateral Diagnostic Mammogram, [facility]. 09/07/2018 Bilateral Screening Mammogram, [facility]. Tissue Density: There are scattered fibroglandular densities. Findings: Analyzed By CAD. Pattern appears symmetrical and stable. No significant interval changes are evident. No suspicious groups of microcalcifications, spiculated or lobular masses, architectural distortion or other secondary signs of malignancy are mammographically apparent. Overall Assessment: Benign, BI-RAD 2 Management: Screening Mammogram of both breasts in 1 year. A negative mammogram report should not preclude additional follow up of suspicious palpable abnormalities. Patient should continue monthly self breast exam. A clinical breast exam by your physician is recommended on an annual basis and results should be correlated with mammographic findings. Electronically signed and approved by: Ar Herbert D.O. Radiologis
== END | disposition home or self-care (01) ==
LOC: RADMAMWWP 15:30
PROVIDERS: ATTEND Internal Medicine Geriatric Medicine
DX: Z12.31 Encounter for screening mammogram for malignant neoplasm of breast (principal); Z78.0 Asymptomatic menopausal state
CPT/HCPCS: 77063; 77067